=== PATIENT | female | born 1965 | race Caucasian/White ===

== ENCOUNTER → 2023-02-04 07:37 | Outpatient (CLI) | payer OTHER, SELFPAY ==
--- NOTE | ~2023-02-04 | MR_ITS ---
MRI of the right shoulder Technique: Axial proton-density fat-sat images, coronal proton density fat-sat and T2 fat-sat images, and sagittal T1-weighted and T2 fat-sat images were acquired. Clinical History: Pain Findings: There is mild AC joint degenerative change. Coracoclavicular, coracoacromial, and coracohum eral ligaments are intact. Supraspinatus and infraspinatus tendons are intact, with moderate tendinosis. There is a ganglion cys t versus focal interstitial tear with acute fluid at the myotendinous junction region of the supraspi natus muscle belly, with cyst/fluid collection measuring 1.6 x 1.2 cm in size. Subscapularis tendon i s intact with moderate to advanced tendinosis. Tendon of the long head of the biceps is intact. No definite labral tear identified. Inferior glenohumeral ligament is intact. There is mild to moderate degenerative change of the glenoh umeral joint, with small inferomedial humeral head osteophyte present. There is fluid distention of t he subacromial/subdeltoid bursa. No other muscle atrophy or edema identified. IMPRESSION: Interstitial tear versus intramuscular ganglion cyst at the myotendinous junction region of the supra spinatus muscle, with 1.6 x 1.2 cm fluid collection/cyst present. Moderate to advanced rotator cuff tendinosis. Mild to moderate degenerative change of the glenohumeral joint. Reviewed, dictated and finalized at [facility]. ER INSTALLER IMPRESSION: Interstitial tear versus intramuscular ganglion cyst at the myotendinous juncti on region of the supraspinatus muscle, with 1.6 x 1.2 cm fluid collection/cyst present. Moderate to advanced rotator cuff tendinosis. Mild to moderate degenerative change of the glenohumeral joint.
== END ==
DX: M25.511 Pain in right shoulder (principal); M75.101 Unspecified rotator cuff tear or rupture of right shoulder, not specified as traumatic
CPT/HCPCS: 73221